=== PATIENT | male | born 1945 | race Caucasian/White ===

== ENCOUNTER → 2020-03-19 | Outpatient (CLI) | payer MEDICARE ==
--- NOTE | 2020-03-19 11:38 | XR ---
EXAMINATION TYPE: XR chest 2V DATE OF EXAM: 03/19/2020 COMPARISON: NONE TECHNIQUE: PA and lateral views submitted. HISTORY: Presurgical FINDINGS: The lungs are clear and there is no pneumothorax, pleural effusion, or focal pneumonia. Hypertrophi c and degenerative changes spine. No overt failure. Biapical pleural thickening. Arthropathy of the s houlders. Heart size normal. Mild hyperinflation correlate for asthma or COPD. IMPRESSION: 1. No acute process.
[2020-03-19 11:56] LABS: HCT 47.2 % (39.0-53.0); HGB 15.7 gm/dL (13.0-17.5); MCH 33.2 pg (25.0-35.0); MCHC 33.2 g/dL (31.0-37.0); MCV 100.1 fL (80.0-100.0); Mean Platelet Volume 7.4; Platelet Count 255 k/uL (150-450); RBC 4.72 m/uL (4.30-5.90); RDW 12.1 % (11.5-15.5); WBC 8.2 k/uL (3.8-10.6)
[2020-03-19 11:58] LABS: African American GFR (CKD) >90 (>60 ml/min/1.73 sqM); Anion Gap 9 mmol/L; Blood Urea Nitrogen 8 mg/dL (9-20); Calcium 9.6 mg/dL (8.4-10.2); Carbon Dioxide 26 mmol/L (22-30); Chloride 101 mmol/L (98-107); Glucose 115 mg/dL (74-99); Non-African American GFR(CKD) >90 (>60 ml/min/1.73 sqM); Potassium 4.4 mmol/L (3.5-5.1); Sodium 136 mmol/L (137-145)
[2020-03-19 12:00] LABS: INR 0.9 (<1.2); Partial Thromboplastin Time 22.4 sec (22.0-30.0); Prothrombin Time 9.5 sec (9.0-12.0)
[2020-03-19 13:56] LABS: Appearance,Urine Clear (Clear); Bilirubin,Urine Negative (Negative); Blood,Urine Negative (Negative); Color,Urine Yellow; Glucose,Urine (UA) Negative (Negative); Ketones,Urine 1+ (Negative); Leukocyte Esterase,Urine Negative (Negative); Nitrite,Urine Negative (Negative); PH, Urine 6.5 (5.0-8.0); Protein,Urine Negative (Negative); Specific Gravity,Urine 1.016 (1.001-1.035)
== END | disposition home or self-care (01) ==
LOC: LABPAT 10:44
PROVIDERS: ATTEND Orthopaedic Surgery Orthopaedic Surgery of the Spine
DX: Z01.818 Encounter for other preprocedural examination (principal)
CPT/HCPCS: 36415; 71046; 80048; 81003; 85027; 85610; 85730; 93005

== ENCOUNTER → 2020-03-23 | Day surgery (SDC) | payer MEDICARE ==
[2020-03-20 08:52] VITALS: BMI 26.6
[~2020-03-23] MED LIST: BUPIVACAIN-EPI 0.25%-1:200,000 30 ML VIAL SQ ONE; DEXAMETHASONE SOD PHOSPHATE 10 MG/ML 1 ML VIAL IV ONE; HYDROcodone/APAP 5-325MG 1 EACH TAB ONE; HYDROcodone/APAP 5-325MG 1 EACH TAB PO ONE; HYDROmorphone 0.5 MG/0.5 ML SYRINGE IVP PRN; LACTATED RINGERS 1,000 ML IV SCH; LIDOCAINE 1% (10MG/ML) FOR IV START INTRADERMA ONE; LIDOCAINE 1% INJ 10MG/ML (20 ML MDV) ONE; MIDAZOLAM 2 MG/2 ML VIAL IV PRN; MIDAZOLAM 2 MG/2 ML VIAL ONE; ONDANSETRON 4 MG/2 ML VIAL IVP ONE; ONDANSETRON 4 MG/2 ML VIAL ONE; PROPOFOL 10 MG/ML 20 ML VIAL IV ONE; Pre Op ABX Message 1 EACH MISC MISCELLANE ONE; SODIUM CHLORIDE 0.9% 1,000 ML IV SCH; SUCCINYLCHOLINE CHLORIDE 100 MG/5 ML SYR IV ONE; ceFAZolin 1,000 MG VIAL IVPB ONE; fentaNYL (PF) 50 MCG/ML 2 ML AMP ONE
[2020-03-23 12:40] VITALS: TEMP 97
[2020-03-23 12:42] VITALS: RESP 16
[2020-03-23 13:51] VITALS: BP 158/90; PULSE 59
--- NOTE | 2020-04-02 08:19 | P.OP ---
Date of Procedure: 04/02/20 Preoperative Diagnosis: Superficial thoracic mass Draining thoracic mass Postoperative Diagnosis: Same, presumed infected sebaceous cyst Anesthesia: GETA Pathology: other (Cultures sent to microbiology) Condition: stable Disposition: PACU Operative Findings: BRIEF OPERATIVE NOTE Preoperative Diagnosis:Superficial thoracic mass Draining thoracic mass Postoperative Diagnosis:Superficial thoracic mass Draining thoracic mass, with presumed sebaceous cyst infected Procedure: Irrigation and excisional debridement of superficial thoracic mass Surgeon: Dr. Arreaga [employer] Operations Officer: Lefty OLIVA Anesthesia: General anesthesia Estimated blood loss: 50 mL Complications: None apparent Components implanted: None Specimen: Cultures sent to microbiology Disposition: To recovery room in good stable condition. OPERATIVE INDICATIONS The patient has been having issues in their mid back with a mass over his mid back. About 2 weeks ago he feels that mass significant increase in size. He does not have any specific injury or trauma. He says that the area became bruised and swollen. He is not having any fevers or chills. The patient has been through conservative treatment. He was watching the area but it was not improving. He felt it is getting somewhat larger. It was sore to him whenever he can lean on it. He is not having any extremity issues or neurologic change. We discussed various treatment options including surgery, and the patient wishes to proceed with surgery. He is starting have some drainage the day before surgery at the site with some purulence. We discussed the risk, patient's alternatives and benefits of surgery including but not limited to, risk of bleeding risk of infection, risk of need for further surgery, risk of decreased, loss of motion, loss of function, nerve damage, paralysis, heart attack, blindness and . OPERATIVE SUMMARY After discussing all the risks, patient alternatives and benefits at length, the patient elected to proceed with surgical intervention, signed informed consent, and presented for their procedure. The patient was seen and examined in the preoperative holding area and the surgical site was marked. The patient was given antibiotics and brought to the operating room. The patient was sedated and intubated by anesthesia in standard fashion. The patient was positioned on to the operating room table in a prone position on the appropriate frame which was well-padded and well molded. We were careful to pad any bony prominences and pressure points. We were careful to maintain the patient's cervical spine and good neutral alignment and position throughout. The patient was prepped and draped in a normal standard fashion. An appropriate timeout and keystone protocol performed. We were able to proceed with the surgery. An incision was made at the longitudinally over the mass itself. The mass was easily defined it was at the lower thoracic area at the paracentral space. With approximately 8 x 6 x 6 cm deep. It was fluctuant. It had some area where the skin was denuded and there was some drainage of some purulent fluid and what appeared to be sebum. Dissection was taken down subcutaneously to the level of the fascia. There was obvious purulent fluid and sebum within the mass itself. It did not appear to extend deep to the fascial layer. There is no bony exposure. There is some denuded tissue around the margins. And evidence of some capsule as well. I was able to excise any denuded tissue and excise capsule as well with Bovie cauterization and sharply. The denuded tissue was passed off. Tissue cultures were taken and passed off for microbiology. It was into the subcutaneous tissue but not within or deep to the fascia. I was able to excise the denuded tissue and portions of the capsule. I was able to achieve a good base with adequate margins. Good hemostasis maintained. The wound was copiously irrigated and suctioned dry. There is no further purulence. We copiously irrigated and suctioned dry the area and there was no evidence of any further infectious material area is no further evidence of any sebum. We were able to proceed with closure. The subcuticular tissue was closed with absorbable suture. The wound was cleaned and dried and dressed with the appropriate dressing. The drapes were broken down. The patient was gently rolled back onto their hospital bed being careful to maintain their cervical spine and good neutral alignment and position. They were woken up by anesthesia, extubated, and brought to the recovery room in good stable condition. The patient will be admitted to the hospital for observation and for appropriate postoperative care, medical management and monitoring. Once he is stable from postanesthesia care he will be able to be discharged home with oral antibiotics and close follow-up. We will continue to follow them closely about the postoperative course.
== END ==
LOC: OR 10:11
PROVIDERS: ATTEND Orthopaedic Surgery Orthopaedic Surgery of the Spine
DX: R22.2 Localized swelling, mass and lump, trunk (principal); R58 Hemorrhage, not elsewhere classified; L53.9 Erythematous condition, unspecified; E78.5 Hyperlipidemia, unspecified; I10 Essential (primary) hypertension; M45.9 Ankylosing spondylitis of unspecified sites in spine; F17.210 Nicotine dependence, cigarettes, uncomplicated; Z79.899 Other long term (current) drug therapy; Z90.89 Acquired absence of other organs; Z98.890 Other specified postprocedural states
CPT/HCPCS: 88304; 87070; 87205; 87075; 11042; 11045 ×14; J2250; J2405; J0690; J2001; J3010; J0330; J2704